=== PATIENT | female | born 1990 | race Caucasian/White ===

== ENCOUNTER 2017-12-08 20:58 | Emergency (ER) | payer OTHER ==
[~2017-12-08] VITALS: Ht 157.5 cm; Wt 61.2 kg
[~2017-12-08 20:58] MED LIST: ALBU8HFA2 INH; ALBU90I INH; ALBU90OI INH; ALBU90OI6 INH; ALBU90OI61 INH; AMOCLA500 PO; AMOX500 PO; Augmentin 875-1 EACH PO; Bactrim Ds Tab1 EACH PO; CEPH500 PO; CIPR500 PO; CODACE30 PO; CODGUAEL PO; CYCL10 PO; GUAI600T33 PO; HYDACE5 PO; IBUP600 PO; IBUP800 PO; Mobic15 MG PO; NAPR500 PO; Naprosyn500 MG PO; OXYACE5T PO; PENVK500 PO; PRED20 PO; PROM25 PO; RXAMOX500 PO; RXCODACET PO; RXPROM25 PO; RXTRAM50 PO; THYROXINE; TRAM50 PO; Ultram50 MG PO; Valium5 MG PO; Zofran Odt4 MG SL
[2017-12-08] MEDS ORDERED: Amoxicillin875 MG PO (22:47)
[2017-12-08] MEDS ORDERED: Sudogest60 MG PO (22:47)
[2017-12-08] MEDS ORDERED: Flonase 0.05% N16 GM (22:47)
[2017-12-08] MEDS ORDERED: Zofran8 MG PO (22:49)
[2018-05-16] MEDS ORDERED: LEVSOD125 PO (01:12)
[2018-05-16] MEDS ORDERED: PENVK500 PO (01:42)
[2018-05-16] MEDS ORDERED: Norco 5-325 Ta1 EACH PO (01:43)
[2018-05-16] MEDS ORDERED: IBUP600 PO (01:43)
== END 2017-12-08 23:00 | disposition home or self-care (01) ==
LOC: ER 20:58
DX: H66.92 Otitis media, unspecified, left ear (principal); R09.81 Nasal congestion; Z88.8 Allergy status to other drugs, medicaments and biological substances; J45.909 Unspecified asthma, uncomplicated; E03.9 Hypothyroidism, unspecified; F17.200 Nicotine dependence, unspecified, uncomplicated
CPT/HCPCS: 99283

== ENCOUNTER 2018-12-12 13:01 | Emergency (ER) | payer OTHER ==
[~2018-12-12] VITALS: Ht 157.5 cm; Wt 61.2 kg
[~2018-12-12 13:01] MED LIST changes: +Amoxicillin875 MG PO; +Flonase 0.05% N16 GM; +LEVSOD125 PO; +Norco 5-325 Ta1 EACH PO; +Sudogest60 MG PO; +Zofran8 MG PO
[2018-12-12] MEDS ORDERED: PENVK500 PO (13:32)
== END 2018-12-12 13:35 | disposition home or self-care (01) ==
LOC: ER 13:01
DX: J02.0 Streptococcal pharyngitis (principal); Z88.8 Allergy status to other drugs, medicaments and biological substances; Z79.899 Other long term (current) drug therapy; E03.9 Hypothyroidism, unspecified; J45.909 Unspecified asthma, uncomplicated; F17.210 Nicotine dependence, cigarettes, uncomplicated
CPT/HCPCS: 87430; 99283; J1100

== ENCOUNTER → 2019-01-28 | Outpatient (CLI) | payer OTHER ==
[2019-01-31 15:01] LABS: G. vaginalis (DNA Probe) Positive (NEGATIVE); T. vaginalis (DNA Probe) Negative (NEGATIVE)
[2019-01-31 15:02] LABS: Candida species (DNA Probe) Negative (NEGATIVE)
== END ==
LOC: LAB SHORT 12:06 → LAB 12:06
PROVIDERS: Nurse Practitioner Family
DX: N89.8 Other specified noninflammatory disorders of vagina (principal)
CPT/HCPCS: 87480; 87510; 87660

== ENCOUNTER 2019-04-19 23:24 | Emergency (ER) | payer OTHER ==
[~2019-04-19] VITALS: Ht 157.5 cm; Wt 65.8 kg
[2019-04-20] MEDS ORDERED: Cleocin HCl150 MG PO (00:07)
== END 2019-04-20 00:17 | disposition home or self-care (01) ==
LOC: ER 23:24
DX: K08.89 Other specified disorders of teeth and supporting structures (principal); Z88.8 Allergy status to other drugs, medicaments and biological substances; Z79.899 Other long term (current) drug therapy; F17.210 Nicotine dependence, cigarettes, uncomplicated
CPT/HCPCS: 96372; 99282-25; J1885

== ENCOUNTER 2019-06-06 15:41 | Emergency (ER) | payer OTHER ==
[~2019-06-06] VITALS: Ht 157.5 cm; Wt 61.2 kg
[~2019-06-06 15:41] MED LIST changes: +Cleocin HCl150 MG PO
== END 2019-06-06 16:44 | disposition home or self-care (01) ==
LOC: ER 15:41
DX: J02.9 Acute pharyngitis, unspecified (principal); Z88.8 Allergy status to other drugs, medicaments and biological substances; Z79.899 Other long term (current) drug therapy; E03.9 Hypothyroidism, unspecified; J45.909 Unspecified asthma, uncomplicated; F17.210 Nicotine dependence, cigarettes, uncomplicated
CPT/HCPCS: 87081; 87430; 99283; J1100

== ENCOUNTER → 2019-10-05 | Outpatient (CLI) | payer OTHER ==
[2019-10-06 09:41] LABS: Candida species (DNA Probe) Negative (NEGATIVE); G. vaginalis (DNA Probe) Positive (NEGATIVE); T. vaginalis (DNA Probe) Negative (NEGATIVE)
[2019-10-08 01:06] LABS: CHLAMYDIA TRACHOMATIS, NAA Negative (Negative); NEISSERIA GONORRHOEAE, NAA Negative (Negative)
== END | disposition home or self-care (01) ==
LOC: LAB 18:08 → LAB SHORT 18:08
PROVIDERS: Nurse Practitioner
DX: N89.8 Other specified noninflammatory disorders of vagina (principal)
CPT/HCPCS: 87480; 87510; 87660

== ENCOUNTER 2020-02-19 17:23 | Emergency (ER) | payer OTHER ==
[~2020-02-19] VITALS: Ht 157.5 cm; Wt 68.5 kg
[2020-02-19] MEDS ORDERED: Prozac20 MG PO (17:45)
[2020-02-19] MEDS ORDERED: IBUP600 PO (17:56)
[2020-02-19] MEDS ORDERED: Cleocin HCl300 MG PO (17:56)
== END 2020-02-19 18:19 | disposition home or self-care (01) ==
LOC: ER 17:23
DX: K02.9 Dental caries, unspecified (principal); E03.9 Hypothyroidism, unspecified; J45.909 Unspecified asthma, uncomplicated; F17.210 Nicotine dependence, cigarettes, uncomplicated; Z91.048 Other nonmedicinal substance allergy status; Z79.899 Other long term (current) drug therapy
CPT/HCPCS: 99282; A9270-GY

== ENCOUNTER → 2023-04-27 | Outpatient (CLI) | payer OTHER ==
[~2023-04-27] MED LIST changes: +Cleocin HCl300 MG PO; +Prozac20 MG PO
[2023-04-28 10:40] LABS: Candida species (DNA Probe) Positive (NEGATIVE); G. vaginalis (DNA Probe) Negative (NEGATIVE); T. vaginalis (DNA Probe) Negative (NEGATIVE)
== END ==
LOC: LAB SHORT 16:03 → LAB 16:03
PROVIDERS: Nurse Practitioner Family
DX: N39.46 Mixed incontinence (principal)
CPT/HCPCS: 87480; 87510; 87660

== ENCOUNTER 2023-10-18 11:17 | Emergency (ER) | payer OTHER ==
[~2023-10-18] VITALS: Ht 154.9 cm; Wt 81.7 kg
[2023-10-18 11:46] VITALS: BP 120/68
[2023-10-18] MEDS ORDERED: Veetids 500500 MG PO (12:26)
== END 2023-10-18 12:36 | disposition home or self-care (01) ==
LOC: ER 11:17
DX: J02.9 Acute pharyngitis, unspecified (principal); E03.9 Hypothyroidism, unspecified; F17.210 Nicotine dependence, cigarettes, uncomplicated; Z91.09 Other allergy status, other than to drugs and biological substances; Z79.890 Hormone replacement therapy; Z79.899 Other long term (current) drug therapy; Z11.52 Encounter for screening for COVID-19
CPT/HCPCS: 99282; J1100

== ENCOUNTER 2023-12-06 09:27 | Emergency (ER) | payer OTHER ==
[~2023-12-06] VITALS: Ht 154.9 cm; Wt 82.1 kg
[~2023-12-06 09:27] MED LIST changes: +Veetids 500500 MG PO
[2023-12-06 10:00] VITALS: BP 119/81
[2023-12-06] MEDS ORDERED: PENVK500 PO (10:50)
== END 2023-12-06 10:55 | disposition home or self-care (01) ==
LOC: ER 09:27
DX: J02.0 Streptococcal pharyngitis (principal); Z88.8 Allergy status to other drugs, medicaments and biological substances; Z79.899 Other long term (current) drug therapy; J45.909 Unspecified asthma, uncomplicated; E03.9 Hypothyroidism, unspecified; F17.210 Nicotine dependence, cigarettes, uncomplicated
CPT/HCPCS: 96375; 99283-25; A9270; J1100

== ENCOUNTER 2023-12-23 00:58 | Emergency (ER) | payer OTHER ==
[~2023-12-23] VITALS: Ht 157.5 cm; Wt 81.7 kg
[~2023-12-23 00:58] MED LIST changes: +EUTHYROX125 MCG PO; -LEVSOD125 PO
[2023-12-23 01:26] VITALS: BP 123/77
[2023-12-23] MEDS ORDERED: Ipratropium/Albuterol SulF 2.5-0.5MG/3 ML Amp INH ONE (02:55)
[2023-12-23] MEDS ORDERED: DELTASONE20 MG PO (03:14)
[2023-12-23] MEDS ORDERED: RX Prepack Albuterol 1 PREPACK/6.7 GM INH UD ONE (03:15)
== END 2023-12-23 03:45 | disposition home or self-care (01) ==
LOC: ER 00:58
DX: J45.901 Unspecified asthma with (acute) exacerbation (principal); F17.210 Nicotine dependence, cigarettes, uncomplicated; E03.9 Hypothyroidism, unspecified; Z79.899 Other long term (current) drug therapy; Z91.048 Other nonmedicinal substance allergy status
CPT/HCPCS: 71046; 94640; 94664; 99283-25; A9270

== ENCOUNTER 2024-04-26 17:43 | Emergency (ER) | payer OTHER ==
[~2024-04-26 17:43] MED LIST changes: +DELTASONE20 MG PO
== END 2024-04-26 18:15 | disposition left against medical advice (07) ==
LOC: ER 17:43
DX: R07.9 Chest pain, unspecified (principal); Z53.29 Procedure and treatment not carried out because of patient's decision for other reasons
CPT/HCPCS: 99281

== ENCOUNTER → 2024-05-04 | Outpatient (CLI) | payer OTHER ==
[2024-05-04 19:52] LABS: Candida Group, PCR NOT DETECTED (NOT DETECT); Candida glabrata-krusei, PCR NOT DETECTED (NOT DETECT)
[2024-05-04 19:59] LABS: Bacterial Vaginosis PCR Positive (NEGATIVE)
== END | disposition home or self-care (01) ==
LOC: LAB SHORT 16:31 → LAB 16:31
PROVIDERS: Student in an Organized Health Care Education/Training Program
DX: R07.89 Other chest pain (principal); R82.90 Unspecified abnormal findings in urine
CPT/HCPCS: 84443; 87481; 87661; 87801

== ENCOUNTER → 2024-11-03 | Outpatient (CLI) | payer OTHER ==
[2024-11-04 08:25] LABS: Bacterial Vaginosis PCR Negative (NEGATIVE); Candida glabrata-krusei, PCR NOT DETECTED (NOT DETECT)
[2024-11-04 08:59] LABS: Candida Group, PCR DETECTED (NOT DETECT)
== END ==
LOC: LAB 19:11 → LAB SHORT 19:11
DX: N89.8 Other specified noninflammatory disorders of vagina (principal)
CPT/HCPCS: 87481; 87661; 87801

== ENCOUNTER 2025-06-13 02:16 | Emergency (ER) | payer OTHER ==
[~2025-06-13] VITALS: Ht 154.9 cm; Wt 61.2 kg
[2025-06-13 02:35] LABS: BASOPHILS ABSOLUTE AUTO 0.06 K/mm3 (0.00-0.23); BASOPHILS PERCENT AUTO 1 % (0-2); EOSINOPHILS ABSOLUTE AUTO 0.13 K/mm3 (0.00-0.68); EOSINOPHILS PERCENT AUTO 2 % (0-6); Hematocrit 43.3 % (33.0-51.0); Hemoglobin 14.4 g/dL (11.5-16.0); IMMATURE GRAN ABSOLUTE AUTO 0.02 K/mm3 (0.00-0.10); IMMATURE GRAN PERCENT AUTO 0 % (0-1); LYMPHOCYTES ABSOLUTE AUTO 2.74 K/mm3 (0.84-5.20); LYMPHOCYTES PERCENT AUTO 40 % (21-46); MONOCYTES ABSOLUTE AUTO 0.39 K/mm3 (0.16-1.47); MONOCYTES PERCENT AUTO 6 % (4-13); Mean Corpuscular HGB Conc 33.3 g/dL (31.5-36.5); Mean Corpuscular Volume 91 fL (80-100); NEUTROPHILS ABSOLUTE AUTO 3.46 K/mm3 (1.96-9.15); NEUTROPHILS PERCENT AUTO 51 % (41-73); NRBC ABSOLUTE 0.00 K/mm3 (0.00-0.02); NRBC Auto 0.0 /100 WBC (0.0-0.2); Platelet Count 340 K/mm3 (150-400); RDW Coefficient Variation 13.3 % (11.7-14.2); RDW Standard Deviation 44.2 fL (35.1-46.3)
[2025-06-13 02:52] LABS: Alanine Aminotransfer (ALT/SGP 38.0 U/L (12-78); Albumin, Blood 3.5 g/dL (3.4-5.0); Albumin/Globulin Ratio 0.9 (0.8-1.8); Anion Gap 6.0 mmol/L (3-11); Aspartate Aminotrans (AST/SGOT 34.0 U/L (12-37); Bilirubin, Total 0.1 mg/dL (0.1-1.0); Blood Urea Nitrogen 13.0 mg/dL (8-24); CO2, Blood 31.0 mmol/L (21-32); Calcium, Blood 8.4 mg/dL (8.5-10.1); Chloride, Blood 105.0 mmol/L (98-108); Creatinine, Blood 0.95 mg/dL (0.40-1.00); Globulin, Blood 3.7 g/dL (2.2-4.0); Glucose, Blood 64.0 mg/dL (70-99); Potassium, Blood 3.8 mmol/L (3.5-5.5); Sodium, Blood 138.0 mmol/L (136-145); Total Protein, Blood 7.2 g/dL (6.4-8.2)
[2025-06-13 04:22] LABS: Source, Urine Clean Catch
[2025-06-13 04:26] LABS: Bilirubin, Urine Neg (Neg); Glucose Qualitative, Urine Neg (Neg); Ketones, Urine Neg (Neg); Leukocyte Esterase, Urine Neg (Neg); Protein, Urine 2+ (Neg); Specific Gravity, Urine 1.025 (1.003-1.022); Urobilinogen, Urine NORM (Normal)
[2025-06-13 04:35] LABS: Color, Urine Yellow (P-Yellow); White Blood Cells, Urine Not Seen /hpf (0-5)
[2025-06-13 05:03] VITALS: BP 109/68
== END 2025-06-13 05:03 | disposition home or self-care (01) ==
LOC: ER 02:16
PROVIDERS: Emergency Medicine
DX: R53.1 Weakness (principal); E03.9 Hypothyroidism, unspecified; J45.909 Unspecified asthma, uncomplicated; F17.210 Nicotine dependence, cigarettes, uncomplicated; Z91.048 Other nonmedicinal substance allergy status; Z79.890 Hormone replacement therapy; Z79.899 Other long term (current) drug therapy
CPT/HCPCS: 80053; 81001; 81025; 85025; 99284

== ENCOUNTER → 2025-07-09 | Outpatient (CLI) | payer OTHER | LOC: LAB 16:56 → LAB SHORT 16:56 | DX: N39.0 Urinary tract infection, site not specified (principal) | CPT/HCPCS: 87077; 87086; 87186 ==

== ENCOUNTER → 2025-10-23 | Outpatient (CLI) | payer OTHER ==
[2025-10-23 19:15] LABS: Candida Group, PCR NOT DETECTED (NOT DETECT); Candida glabrata-krusei, PCR NOT DETECTED (NOT DETECT)
[2025-10-23 19:27] LABS: Bacterial Vaginosis PCR Positive (NEGATIVE)
== END ==
LOC: LAB SHORT 12:02 → LAB 12:02
PROVIDERS: Student in an Organized Health Care Education/Training Program
DX: N89.8 Other specified noninflammatory disorders of vagina (principal)
CPT/HCPCS: 81515